=== PATIENT | male | born 1975 | race Two or more races ===

== ENCOUNTER 2019-04-19 08:42 | Outpatient (CLI) | payer OTHER | END 2019-04-19 08:55 | disposition home or self-care (01) | LOC: RAD 08:42 | DX: M25.532 Pain in left wrist (principal) ==

== ENCOUNTER 2020-02-06 08:56 | Outpatient (CLI) | payer OTHER | END 2020-02-06 09:04 | disposition home or self-care (01) | LOC: RAD 08:56 | PROVIDERS: ATTEND Orthopaedic Surgery | DX: M25.561 Pain in right knee (principal) ==

== ENCOUNTER 2020-02-08 10:52 | Outpatient (CLI) | payer OTHER | END 2020-02-08 11:07 | disposition home or self-care (01) | LOC: RAD 10:52 | PROVIDERS: ATTEND Orthopaedic Surgery | DX: M25.561 Pain in right knee (principal) ==

== ENCOUNTER 2020-10-31 17:15 | Outpatient (CLI) | payer OTHER | END 2020-10-31 17:21 | disposition home or self-care (01) | LOC: RAD 17:15 | PROVIDERS: ATTEND Orthopaedic Surgery | DX: M17.0 Bilateral primary osteoarthritis of knee (principal) ==

== ENCOUNTER 2025-04-08 06:31 | Outpatient (CLI) | payer OTHER ==
[2025-04-08 07:58] LABS: BASO % 1.1 % (0.1-1.2); EOS # 0.21 (0.04-0.54); EOS % 3.9 % (0.7-7.0); LYMPH # 1.53 (1.18-3.74); LYMPH % 28.7 % (19.3-53.1); MEAN PLATELET VOLUME 9.40 fl (9.4-12.4); MONO # 0.44 (0.24-0.82); MONO % 8.2 % (4.7-12.5); NEUT # 3.08 (1.56-6.13); NEUT % 57.7 % (34.0-71.1); RED CELL DISTRIBUTION WIDTH 12.2 % (11.6-14.4)
[2025-04-08 08:22] LABS: URINE APPEARANCE Clear; URINE BILIRRUBIN Negative (NEGATIVE); URINE BLOOD Negative; URINE COLOR Yellow; URINE GLUCOSE Negative (NEGATIVE); URINE KETONE Negative (NEGATIVE); URINE LEUKOCYTE Negative; URINE NITRATE Negative; URINE PROTEIN Negative (NEGATIVE); URINE UROBILINOGEN 0.2 E.U./dl
[2025-04-08 08:24] LABS: URINE BACTERIA 4.7 uL (0.0-1933)
[2025-04-08 08:26] LABS: URINE CAST 0.00 uL (0.0-1.40); URINE EPITHELIAL CELLS 0.4 uL (0.0-38.8); URINE RBC 0.7 uL (0.0-20.8); URINE WBC 1.5 uL (0.0-23.2)
[2025-04-08 08:36] LABS: COL EPI 126 SECONDS (82-175)
[2025-04-08 08:40] LABS: INR 1.05
[2025-04-08 08:55] LABS: ALT/SGPT 41.0 U/L (12-78); AST/SGOT 21.0 U/L (15-37); BILIRUBIN TOTAL 0.7 mg/dL (0.3-1.2); BUN CREA RATIO 16.0 (7.0-25.0); CREATININE SERUM 0.79 mg/dL (0.70-1.30); GFR 105.13; GLOBULINA 3.2 G/DL (2.4-3.5); GLUCOSE FASTING 82.0 mg/dL (65-100); OSMOLALITY SERUM 282.0 MOSM/KG (275-295)
== END 2025-04-08 06:39 | disposition home or self-care (01) ==
LOC: RAD 06:31
PROVIDERS: ATTEND Orthopaedic Surgery
DX: D64.9 Anemia, unspecified (principal); E88.9 Metabolic disorder, unspecified; D68.8 Other specified coagulation defects; N39.0 Urinary tract infection, site not specified; Z22.322 Carrier or suspected carrier of Methicillin resistant Staphylococcus aureus; E11.8 Type 2 diabetes mellitus with unspecified complications; I10 Essential (primary) hypertension; Z76.89 Persons encountering health services in other specified circumstances